=== PATIENT | female | born 1965 | race Caucasian/White ===

== ENCOUNTER → 2017-08-10 | Outpatient (CLI) | payer BC ==
--- NOTE | 2017-08-11 13:48 | MM ---
Reason for exam: screening (asymptomatic). Last mammogram was performed 1 year and 1 month ago. History: Patient had first child at age 32. Family history of premenopausal breast cancer in mother at age 40 and breast cancer in aunt at age 60. Benign right mammotome panel of the right breast, October 13, 2011. Cyst aspiration of the left breast, November 2006. Took hormonal contraceptives for 12 years beginning at age 19. Physical Findings: A clinical breast exam by your physician is recommended on an annual basis and results should be correlated with mammographic findings. MG 3D Screening Mammo W/Cad Bilateral CC and MLO view(s) were taken. Prior study comparison: July 20, 2016, bilateral MG 3d screening mammo w/cad. June 02, 2015, bilateral MG screening mammo w CAD. The breast tissue is extremely dense which could obscure a lesion on mammography. Previous mammotome biopsy in the right breast. There is chronic nodularity in the left breast. Stable distortion in the left breast. No significant changes when compared with prior studies. ASSESSMENT: Benign, BI-RAD 2 RECOMMENDATION: Routine screening mammogram of both breasts in 1 year.
== END ==
LOC: RADMAMWWP 12:39
PROVIDERS: ATTEND Surgery
DX: Z12.31 Encounter for screening mammogram for malignant neoplasm of breast (principal)
CPT/HCPCS: 77063; G0202

== ENCOUNTER → 2018-05-08 | Outpatient (CLI) | payer BC ==
--- NOTE | 2018-05-08 10:28 | ECHOF ---
Referral Reason:Z78.0 Postmenopausal, R06.09 Dyspnea on exertion MEASUREMENTS -------- HEIGHT: 157.5 cm WEIGHT: 73.5 kg BP: IVSd: 1.1 cm (0.6 - 1.1) LVIDd: 3.6 cm (3.9 - 5.3) LVPWd: 1.3 cm (0.6 - 1.1) IVSs: 1.4 cm LVIDs: 2.6 cm LVPWs: 1.3 cm LA Diam: 2.9 cm (2.7 - 3.8) Ao Diam: 2.4 cm (2.0 - 3.7) AV Cusp: 1.4 cm (1.5 - 2.6) LA Diam: 3.7 cm (2.7 - 3.8) MV EXCURSION: 7.289 mm (> 18.000) MV EF SLOPE: 62 mm/s (70 - 150) EPSS: 0.1 cm MV E Zachary: 0.73 m/s MV DecT: 206 ms MV A Zachary: 0.66 m/s MV E/A Ratio: 1.10 RAP: 5.00 mmHg RVSP: 19.39 mmHg FINDINGS -------- Sinus rhythm. This was a technically adequate study. LV size, wall thickness and systolic function are normal, with an EF greater than 55%. The left severo tricular size is normal. The right ventricle is normal in size. The left atrial size is normal. The right atrial size is normal. There is mild aortic valve sclerosis. There is no evidence of aortic regurgitation. Mild mitral annular calcification present. Mild mitral regurgitation is present. Mild tricuspid regurgitation present. There is no evidence of pulmonary hypertension. The right v entricular systolic pressure, as measured by Doppler, is 19.39mmHg. There is no pulmonic regurgitation present. The aortic root size is normal. There is no pericardial effusion. CONCLUSIONS -------- 1. LV size, wall thickness and systolic function are normal, with an EF greater than 55%. 2. The left ventricular size is normal. 3. The right ventricle is normal in size. 4. The left atrial size is normal. 5. The right atrial size is normal. 6. There is mild aortic valve sclerosis. 7. Mild mitral annular calcification present. 8. Mild mitral regurgitation is present. 9. Mild tricuspid regurgitation present. 10. There is no evidence of pulmonary hypertension. 11. The right ventricular systolic pressure, as measured by Doppler, is 19.39mmHg. 12. There is no pulmonic regurgitation present. 13. The aortic root size is normal. 14. There is no pericardial effusion. COMPOTYPE OPERATOR: Ciera Metz RDCS
--- NOTE | 2018-05-08 11:07 | ECHOS ---
STRESS ECHOCARDIOGRAM INDICATIONS: Shortness of breath, palpitations. MEDICATIONS: Cerdelga, HCTZ, Synthroid. BASELINE HEART RATE: 66 BASELINE BLOOD PRESSURE: 152/67 MAXIMUM HEART RATE: 167 MAXIMUM BLOOD PRESSURE: 207/95 85% MPHR: 143 100% MPHR: 168 METS: 12.1 MAXIMUM STAGE REACHED: 4 TOTAL EXERCISE TIME: 12:00 CLINICAL INFORMATION: History of shortness of breath and palpitations. Baseline heart rate 66 beats per minute. Baseline blood pressure 152/67 mmHg. Baseline 12-lead ECG shows normal sinus rhythm with normal cardiac intervals. Patient exercised on Rivera protocol for 12 minutes achieving a peak heart rate of 167 beats per minute. Mildly hypertensive response to exercise, 207/95 mmHg. There was no ECG evidence for ischemia. No arrhythmias were noted. Baseline 2D echo showed normal LV size and systolic function, but it was technically difficult study before echo contrast was used to delay the LV endocardial borders. There was excellent augmentation of overall LV contractility without developing any wall motion abnormalities at peak exercise. At recovery, regional global LV systolic function remained normal. IMPRESSION: 1. No ECG or echocardiographic evidence for ischemia. 2. Good exercise capacity. 3. Mildly hypertensive response to exercise. MMODL / IJN: [id number] /
--- NOTE | 2018-05-08 16:07 | BD ---
EXAMINATION TYPE: Axial Bone Density DATE OF EXAM: 05/08/2018 COMPARISON: 07/11/2008 CLINICAL HISTORY: 53-year-old female postmenopausal screening Height: 61.5 IN Weight: 165 LBS RISK FACTORS HISTORY OF: Surgery to Hip(left): YES When: 1998 AND 2015 Active: YES Diet low in dairy products/other sources of calcium: YES If Premenopausal, do you have irregular periods: SPOTTING 04/2018 MEDICATIONS: Thyroid Medications: YES Which medication: Levothyroxine How Lon YEARS Additional Medications: LEVOTHYROXINE, CERDELGA, HCTZ EXAM MEASUREMENTS: Bone mineral densitometry was performed using the Motorpaneer System. Bone mineral density as measured about the Lumbar spine is: ----- L1-L4(G/cm2): 1.099 T Score Values are as follows: ----- L2: -0.7 ----- L3: -0.4 ----- L4: -1.1 ----- L1-L4: -0.7 Bone mineral density has: Increased 0.9% since study of: 07/11/2008 PT HAD LT HIP REPLACEMENT 1998 AND 2015 Bone mineral density about the R hip (g/cm2): 0.777 T Score values are as follows: -----R Neck: -1.9 -----R Total: -1.1 Bone mineral density has: Decreased -1.7% since study of: 07/11/2008 IMPRESSION: Osteopenia (T Score between -2.5 and -1). There is slightly increased risk of fracture and the patient may be considered for treatment. Re-Screen 2-5 years. NOTE: T-SCORE=SD OF THE YOUNG ADULT MEAN.
== END | disposition home or self-care (01) ==
LOC: RADECHMAIN 08:21
PROVIDERS: ATTEND Family Medicine
DX: I08.1 Rheumatic disorders of both mitral and tricuspid valves (principal); M85.80 Other specified disorders of bone density and structure, unspecified site; I10 Essential (primary) hypertension; Z78.0 Asymptomatic menopausal state
CPT/HCPCS: 93306; 93351; 77080; Q9950

== ENCOUNTER → 2018-05-09 | Outpatient (CLI) | payer BC ==
--- NOTE | 2018-05-10 20:23 | MR ---
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 Limited movement of the right hip. History of osteomyeli tis left femur. TECHNIQUE: Multiplanar, multisequence images of the right femur were obtained without IV contrast. 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 There is an old aren't retracted within the left femoral shaft with associated cortical thickening along the mid shaft and prominent cortical irregularity especially at the level of the mid diaphyses. Chronic appearing cystic spaces are prese nt within the medullary space here and proximally, there is metal hardware artifact relating to left hip arthroplasty. On the right, there is diffuse heterogeneity of the marrow with curvilinear and punctate areas of int ermediate T1 signal and intermediate to bright fluid signal. T2-weighted sequence shows heterogeneous areas of low signal within the medullary space. There is a 1.7 x 1.0 x 1.0 cm round lesion within the intramedullary space of the distal third femora l shaft. This abuts the posterior cortex without any significant endosteal scalloping. There may be s ome subtle chemical shift artifact related to this lesion, for example, coronal T1 image 14. There is no raul bone marrow replacement or bone marrow edema identified. Small knee joint effusions, left greater than right. No significant soft tissue abnormality seen. IMPRESSION: 1. Erlenmeyer flask deformities of the distal femora in keeping with patient's history of Gaucher's d isease. 2. Heterogeneous marrow signal especially involving the femoral shaft. Findings suspected to represen t a combination of red marrow hyperplasia, bone infarcts, and Gaucher bodies relating to the patient' s storage disease. 3. On the right, no evidence for fracture, osteomyelitis, or any destructive lesion. 4. There is a 1.7 cm lesion in the distal third right femoral shaft located within the intramedullary space. Differential considerations include a nonspecific intraosseous cyst, fibro-osseous lesion, or chondroid lesion. No cortical erosions or aggressive features. There is no adjacent marrow edema to suggest intraosseous abscess. 5. Extensive chronic deformity to the left femoral shaft likely sequela of prior infection. There is an old pin tract in the mid shaft with extensive cystic change. Clinical correlation would be needed to exclude the presence of any indolent infection. Proximal artifact relating to left hip arthroplast y.
== END | disposition home or self-care (01) ==
LOC: RADMRIMAIN 11:24
PROVIDERS: ATTEND Family Medicine
DX: M21.951 Unspecified acquired deformity of right thigh (principal); M89.9 Disorder of bone, unspecified; Z96.642 Presence of left artificial hip joint

== ENCOUNTER → 2018-05-11 | Outpatient (CLI) | payer BC ==
--- NOTE | 2018-05-11 14:45 | MR ---
EXAMINATION TYPE: MR abdomen wo/w con DATE OF EXAM: 05/11/2018 COMPARISON: CT abdomen pelvis dated 05/13/2014 HISTORY: Gaucher's disease. History of nephrolithiasis, cholelithiasis and splenectomy. CONTRAST: Standard multiplanar, multisequence MRI departmental protocol of the abdomen was performed utilizing 7 mL intravenous Gadavist contrast. FINDINGS: Liver/gallbladder: There is no signal dropout within the hepatic parenchyma to suggest hepatic steato sis on out of phase imaging. No focal hepatic lesion is seen or evidence of intrahepatic biliary duct al dilatation. The liver is not enlarged. Multiple gallstones are seen within the gallbladder. No rig ht upper quadrant fat stranding is seen. No pericholecystic fluid is noted. No intrahepatic or extrah epatic biliary ductal dilatation is seen. The common hepatic duct measures 6 mm, within normal limits . There is a very subtle reticulation that is T1 hypointense, T2 hypointense, and demonstrates very sub tle delayed enhancement throughout the hepatic parenchyma. Spleen: Surgically absent. Pancreas: Pancreas enhances homogeneously without ductal dilatation. Adrenal glands: Adrenal glands are symmetric without nodularity or focal lesion. Kidneys: There is a too small to accurately characterize 5 mm nonenhancing right upper pole T1 hypoin tense lesion that is isointense on T2. No acute hemorrhage is seen on precontrast T1 images. Known re nal calculi are not demonstrated on MR. No hydronephrosis or focal renal lesion. Vasculature: Abdominal aorta and its visualized portions are of normal course and caliber. Bowel: Small posterior left lateral gastric diverticulum is seen from the fundus. No dilated large or small bowel is identified. No hiatal hernia. Osseous structures: No focal lesion is identified. Lymph nodes: No greater than 1 cm short axis lymph node within the abdomen. IMPRESSION: 1. Very mild reticular pattern throughout the hepatic parenchyma that could represent early fibrosis. If there is concern or abnormal serum laboratory values ranging liver biopsy could be performed. No focal liver lesion is identified. 2. Surgical absence of the spleen.
== END | disposition home or self-care (01) ==
LOC: RADMRIMAIN 11:17
PROVIDERS: ATTEND Family Medicine
DX: R93.2 Abnormal findings on diagnostic imaging of liver and biliary tract (principal); E75.22 Gaucher disease; Z90.81 Acquired absence of spleen
CPT/HCPCS: 74183; A9581

== ENCOUNTER → 2018-05-12 | Outpatient (CLI) | payer BC ==
--- NOTE | 2018-05-12 13:10 | MR ---
EXAMINATION TYPE: MR pelvis wo/w con DATE OF EXAM: 05/12/2018 COMPARISON: CT abdomen and pelvis May 13, 2014 HISTORY: Gaucher disease CONTRAST: Standard multiplanar, multisequence MRI departmental protocol utilizing 7 mL intravenous Gadavist amber olinium contrast. FINDINGS: Evaluation slightly suboptimal due to unusual artifact over the anterior right lower quadra nt. Artifact from left hip arthroplasty is redemonstrated. Bone marrow signal intensity in pelvis is overall grossly unremarkable. Right hip joint is maintained. Sacroiliac joints are felt within normal limits. Pubic symphysis is intact. Visualized portion of lumbar spine is unremarkable. There is 1.0 cm Tarlov cyst inferior S2 level sagittal image 26. There is no suspicious bowel dilatation. Urinary bladder is felt within normal limits. Uterus is slig htly retroverted in shape. No free fluid is seen in pelvic cul-de-sac. No concerning pelvic adenopath y is seen. IMPRESSION: As above, no suspicious findings identified.
== END | disposition home or self-care (01) ==
LOC: RADMRIMAIN 11:18
PROVIDERS: ATTEND Family Medicine
DX: E75.22 Gaucher disease (principal)
CPT/HCPCS: 72197; A9581

== ENCOUNTER → 2019-05-30 | Outpatient (CLI) | payer BC ==
--- NOTE | 2019-05-31 13:15 | MM ---
Reason for exam: screening (asymptomatic). Last mammogram was performed 1 year and 10 months ago. History: Patient had first child at age 32. Family history of premenopausal breast cancer in mother at age 40 and breast cancer in aunt at age 60. Benign right mammotome panel of the right breast, October 13, 2011. Cyst aspiration of the left breast, November 2006. Took hormonal contraceptives for 12 years beginning at age 19. Physical Findings: A clinical breast exam by your physician is recommended on an annual basis and results should be correlated with mammographic findings. MG 3D Screening Mammo W/Cad Bilateral CC and MLO view(s) were taken. Prior study comparison: August 10, 2017, bilateral MG 3d screening mammo w/cad. July 20, 2016, bilateral MG 3d screening mammo w/cad. The breast tissue is heterogeneously dense. This may lower the sensitivity of mammography. There are benign appearing round calcifications in the left breast. Previous mammotome biopsy in the right breast. There is chronic nodularity in the left breast. There is no discrete abnormality. ASSESSMENT: Benign, BI-RAD 2 RECOMMENDATION: Routine screening mammogram of both breasts in 1 year.
== END | disposition home or self-care (01) ==
LOC: RADMAMWWP 15:36
PROVIDERS: ATTEND Family Medicine
DX: Z12.31 Encounter for screening mammogram for malignant neoplasm of breast (principal)
CPT/HCPCS: 77063; 77067

== ENCOUNTER → 2020-07-17 | Outpatient (CLI) | payer BC ==
--- NOTE | 2020-07-18 10:41 | ECHOF ---
Referral Reason:R3.0 ELEVATED BP MEASUREMENTS -------- HEIGHT: 157.5 cm WEIGHT: 68.9 kg BP: RVIDd: 3.0 cm (< 3.3) IVSd: 0.8 cm (0.6 - 1.1) LVIDd: 4.2 cm (3.9 - 5.3) LVPWd: 1.0 cm (0.6 - 1.1) IVSs: 1.4 cm LVIDs: 2.7 cm LVPWs: 1.1 cm LA Diam: 3.0 cm (2.7 - 3.8) LAESV Index (A-L): 19.39 ml/m Ao Diam: 2.7 cm (2.0 - 3.7) AV Cusp: 1.5 cm (1.5 - 2.6) MV EXCURSION: 17.007 mm (> 18.000) MV EF SLOPE: 119 mm/s (70 - 150) MV E Zachary: 0.49 m/s MV DecT: 287 ms MV A Zachary: 0.61 m/s MV E/A Ratio: 0.81 RAP: 5.00 mmHg RVSP: 13.62 mmHg TAPSE: 19.44 mm FINDINGS -------- Sinus rhythm. This was a technically good study. LV size, wall thickness and systolic function are normal, with an EF greater than 55%. The left severo tricular size is normal. The right ventricle is normal in size. The left atrial size is normal. Normal LA size by volume 22+/-6 ml/m2. The right atrial size is normal. The aortic valve is trileaflet, and appears structurally normal. No aortic stenosis or regurgitation. Mild mitral regurgitation is present. Mild tricuspid regurgitation present. Right ventricular systolic pressure is normal at < 35 mmHg. There is no pulmonic regurgitation present. The aortic root size is normal. There is no pericardial effusion. CONCLUSIONS -------- 1. LV size, wall thickness and systolic function are normal, with an EF greater than 55%. 2. The left ventricular size is normal. 3. The right ventricle is normal in size. 4. The left atrial size is normal. 5. Normal LA size by volume 22+/-6 ml/m2. 6. The right atrial size is normal. 7. Mild mitral regurgitation is present. 8. Mild tricuspid regurgitation present. 9. There is no pulmonic regurgitation present. DESIGN DRAFTSMAN: Ciera Metz RDCS
--- NOTE | 2020-07-18 13:57 | MM ---
Reason for exam: screening (asymptomatic). Last mammogram was performed 1 year and 2 months ago. History: Patient had first child at age 32. Family history of premenopausal breast cancer in mother at age 40 and breast cancer in aunt at age 60. Benign right mammotome panel of the right breast, October 13, 2011. Cyst aspiration of the left breast, November 2006. Took hormonal contraceptives for 12 years beginning at age 19. Physical Findings: A clinical breast exam by your physician is recommended on an annual basis and results should be correlated with mammographic findings. MG 3D Screening Mammo W/Cad Bilateral CC and MLO view(s) were taken. Prior study comparison: May 30, 2019, bilateral MG 3d screening mammo w/cad. August 10, 2017, bilateral MG 3d screening mammo w/cad. The breast tissue is heterogeneously dense. This may lower the sensitivity of mammography. Previous mammotome biopsy in the right breast. There is chronic nodularity in the left breast. No significant changes when compared with prior studies. ASSESSMENT: Benign, BI-RAD 2 RECOMMENDATION: Routine screening mammogram of both breasts in 1 year.
== END | disposition home or self-care (01) ==
LOC: RADMAMWWP 15:21
PROVIDERS: ATTEND Obstetrics & Gynecology
DX: Z12.31 Encounter for screening mammogram for malignant neoplasm of breast (principal); I08.1 Rheumatic disorders of both mitral and tricuspid valves
CPT/HCPCS: 77063; 77067; 93306

== ENCOUNTER → 2020-10-01 | Outpatient (CLI) | payer BC ==
--- NOTE | 2020-10-01 13:52 | CT ---
EXAMINATION TYPE: CT abdomen pelvis wo/w con DATE OF EXAM: 10/01/2020 COMPARISON: 05/13/2014 INDICATION: Left lower quadrant pain and hematuria. DLP: 1724.6 mGycm, Automated exposure control for dose reduction was used. CONTRAST: 100 mL of Isovue M300. Study performed with Oral Contrast TECHNIQUE: Axial images were obtained from above the diaphragm to the pubic rami in the axial plane a t 5 mm thick sections. Reconstructed images are reviewed on the computer in the coronal plane. FINDINGS: Limited CT sections are obtained the lung bases. The lung bases are clear. CT ABDOMEN: Liver: Normal Spleen: Normal Pancreas: Normal Adrenal glands: The adrenal glands are normal. Gallbladder: Gallstones are present Kidneys: No masses are evident. There is moderate left hydronephrosis. There is an obstructing left u reteral pelvic junction stone measuring 0.7 x 1.1 cm. Series 3 image 28. Distal ureteral stones are n ot identified. No right hydronephrosis is evident No cysts are present. Aorta: Normal Inferior vena cava: Normal. CT PELVIS: Loops of bowel within the abdomen and pelvis are normal. There are loops of bowel which are incom pletely distended or lack oral contrast limiting their evaluation. Appendix: Not identified. No suspicious dilated tubular structures or inflammatory changes are eviden t Urinary bladder: Normal Genitourinary structures: Uterus is normal. Adnexal regions are clear Osseous structures: No suspicious lytic or sclerotic lesions. IMPRESSIONS: 1. Obstructing 0.7 x 1.1 cm left ureteral pelvic junction stone with moderate left hydronephrosis.
== END | disposition home or self-care (01) ==
LOC: RADCTMAIN 11:39
PROVIDERS: ATTEND Nurse Practitioner Family
DX: N13.2 Hydronephrosis with renal and ureteral calculous obstruction (principal)
CPT/HCPCS: 74178; Q9967 ×2

== ENCOUNTER 2020-10-13 06:02 | Day surgery (SDC) | payer BC ==
[2020-10-09 14:26] VITALS: BMI 28.9
--- NOTE | 2020-10-10 08:51 | P.GSHP ---
History of Present Illness H&P Date: 10/10/20 58 yo female with a painful 11x7 left upj stone who comes for eswl The risks complications and alternatives have been discussed - Constitutional Constitutional: Denies chills, Denies fever - EENT Eyes: denies blurred vision, denies pain Ears, nose, mouth and throat: Denies headache, Denies sore throat - Cardiovascular Cardiovascular: Denies chest pain, Denies shortness of breath - Respiratory Respiratory: Denies cough, Denies 7 - Gastrointestinal Gastrointestinal: Denies abdominal pain, Denies diarrhea, Denies nausea, Denies vomiting - Genitourinary (Female) Genitourinary: Denies dysuria, Denies hematuria - Genitourinary (Male) Genitourinary: Denies dysuria, Denies hematuria - Musculoskeletal Musculoskeletal: Denies myalgias - Integumentary Integumentary: Denies pruritus, Denies rash - Neurological Neurological: Denies numbness, Denies weakness - Psychiatric Psychiatric: Denies anxiety, Denies depression - Endocrine Endocrine: Denies fatigue, Denies weight change Past Medical History Past Medical History: Blood Disorder, Thyroid Disorder Additional Past Medical History / Comment(s): Gaucher's disease, hx osteomyelitis, hypoglycemia. History of Any Multi-Drug Resistant Organisms: None Reported Past Surgical History: Joint Replacement, Orthopedic Surgery Additional Past Surgical History / Comment(s): Spleenectomy, multiple orthopedic surgeries, left hip replacement, THYROIDECTOMY/PARATHYROIDECTOMY, left hip revision. Past Anesthesia/Blood Transfusion Reactions: Motion Sickness Past Psychological History: No Psychological Hx Reported Smoking Status: Never smoker Past Alcohol Use History: Rare Past Drug Use History: None Reported - Past Family History Mother Family Medical History: Cancer Medications and Allergies Home Medications Medication Instructions Recorded Confirmed Type hydroCHLOROthiazide [Hydrodiuril] 25 mg PO QAM 03/31/17 10/09/20 History Cerezyeme 1 dose IV Q14D 10/09/20 10/09/20 History Cholecalciferol [Vitamin D3 (25 1,000 unit PO DAILY 10/09/20 10/09/20 History Mcg = 1000 Iu)] Levothyroxine Sodium [Synthroid] 75 mcg PO QAM 10/09/20 10/09/20 History Allergies Allergy/AdvReac Type Severity Reaction Status Date / Time amoxicillin [Amoxicillin] AdvReac Diarrhea Verified 10/09/20 14:14 Penicillins AdvReac Diarrhea Verified 10/09/20 14:14 Surgical - Exam - General well developed, well nourished - Eyes PERRL - ENT no hearing loss - Neck trachea midline - Respiratory normal expansion, normal respiratory effort - Cardiovascular Rhythm: regular - Abdomen Abdomen: soft, non tender - Integumentary no rash, no growths - Musculoskeletal normal gait, normal posture - Psychiatric oriented to time, oriented to person, oriented to place, speech is normal, memory intact Assessment and Plan Assessment: Impression: Left upj stone Plan: eswl left
[~2020-10-13 06:02] MED LIST: DEXAMETHASONE SOD PHOSPHATE 4 MG/ML 1 ML VIAL IV ONE; HYDROmorphone 0.5 MG/0.5 ML SYRINGE IVP PRN; LACTATED RINGERS 1,000 ML IV SCH; ONDANSETRON 4 MG/2 ML VIAL IVP ONE
[2020-10-13 06:59] LABS: Glucose,Whole Blood 94 mg/dL (75-99)
[2020-10-13 07:01] VITALS: RESP 16; TEMP 97.1
[2020-10-13] MEDS ORDERED: MIDAZOLAM 2 MG/2 ML VIAL ONE (07:38)
[2020-10-13] MEDS ORDERED: PROPOFOL 10 MG/ML 20 ML VIAL IV ONE (07:38)
[2020-10-13] MEDS ORDERED: LIDOCAINE 1% INJ 10MG/ML (20 ML MDV) ONE (07:38)
[2020-10-13] MEDS ORDERED: fentaNYL (PF) 50 MCG/ML 2 ML AMP ONE (07:38)
--- NOTE | 2020-10-13 08:14 | XR ---
EXAMINATION TYPE: XR KUB portable DATE OF EXAM: 10/13/2020 COMPARISON: Correlation CT 10/01/2020 HISTORY: 55 year-old female left renal calculi FINDINGS: 11 x 6 mm calcification in the left mid abdomen. Mild to moderate overall spinal burden. Nonobstructi ve bowel gas pattern. Partly visualized left hip arthroplasty. Mild degenerative change of the right hip. IMPRESSION: 11 x 6 mm left mid abdominal renal calculus. CT abdomen at the level of the UPJ on 10/01/2020.
--- NOTE | 2020-10-13 08:17 | P.OP ---
Date of Procedure: 10/13/20 Preoperative Diagnosis: Left renal calculus Postoperative Diagnosis: Same Procedure(s) Performed: Left extracorporal shockwave lithotripsy (ESWL) Anesthesia: MAC Surgeon: Gerard Olivia Estimated Blood Loss (ml): 0 IV fluids (ml): 700 Pathology: none sent Condition: stable Disposition: PACU Indications for Procedure: The patient is a 55-year-old white female who recently presented with left flank pain due to a 7 x 11 mm left UPJ calculus. She elected to undergo ESWL. Preoperative KUB x-ray reveals that the calculus now resides within a lower pole calyx. Operative Findings: Excellent fragmentation. Description of Procedure: The patient was taken to the operating room and placed on the Dornier Profex Delta II lithotripter in the supine position. The calculus was seen on biplanar fluoroscopy. Once the patient was properly positioned and sedated, lithotripsy was performed. The energy level was gradually increased per protocol, to an energy level of 5. A total of 2000 shocks were given at a rate of 80 shocks per minute. Fluoroscopy was utilized at a minimum to ensure proper positioning and determine the treatment status. The calculus changed in appearance, consistent with fragmentation. The patient tolerated the procedure well was taken to the recovery room in stable condition. Instructions were given to strain the urine, and the patient will follow-up within one week.
[2020-10-13 08:48] VITALS: BP 114/75; PULSE 62
== END 2020-10-13 09:07 | disposition home or self-care (01) ==
LOC: ORWHC2ENDO 06:02
PROVIDERS: ATTEND Urology
DX: N20.0 Calculus of kidney (principal); E75.22 Gaucher disease; E89.0 Postprocedural hypothyroidism; E89.2 Postprocedural hypoparathyroidism; Z96.642 Presence of left artificial hip joint; Z79.890 Hormone replacement therapy; Z79.899 Other long term (current) drug therapy; Z88.0 Allergy status to penicillin; Z87.39 Personal history of other diseases of the musculoskeletal system and connective tissue; Z86.2 Personal history of diseases of the blood and blood-forming organs and certain disorders involving the immune mechanism; Z90.81 Acquired absence of spleen; Z98.890 Other specified postprocedural states
CPT/HCPCS: 74018; 50590; J2250; J1100; J2405; J2001; J3010; J2704

== ENCOUNTER → 2020-10-23 | Outpatient (CLI) | payer BC ==
--- NOTE | 2020-10-23 10:33 | XR ---
EXAMINATION TYPE: XR KUB DATE OF EXAM: 10/23/2020 Comparison: 10/23/2020 Clinical History: 55-year-old female N20.1 Ureteral Calculus Findings: A 5 mm calcification may remain in the left mid abdomen, smaller as compared to 1.1 cm, previously. M oderate stool burden. Nonobstructive bowel gas pattern. Left hip total arthroplasty partially visuali zed. Impression: A 5 mm left mid abdominal calcification remains compared to 1.1 cm, previously.
== END | disposition home or self-care (01) ==
LOC: RADXRMAIN 09:15
PROVIDERS: ATTEND Urology
DX: N20.1 Calculus of ureter (principal)
CPT/HCPCS: 74018

== ENCOUNTER → 2021-08-06 | Outpatient (CLI) | payer BC ==
--- NOTE | 2021-08-06 07:54 | BD ---
EXAMINATION TYPE: Axial Bone Density DATE OF EXAM: 08/06/2021 COMPARISON: Prior DEXA bone scan 2018 CLINICAL HISTORY: Postmenopausal female. Disorder of bone. Height: 61.5 Weight: 161.5 FRAX RISK QUESTIONS: Alcohol (3 or more units per day): no Family History (Parent hip fracture): no Glucocorticoids (More than 3mos): no (Ex: prednisone, prednisolone, methylprednisolone, dexamethasone, and hydrocortisone). History of Fracture in Adulthood: no Secondary Osteoporosis: 1. Type 1 Diabetes: no 2. Hyperthyroidism: no 3. Menopause before 45: no 4. Malnutrition: no 5. Chronic liver disease: no Rheumatoid Arthritis: no Current Tobacco Use: no RISK FACTORS HISTORY OF: Surgery to Spine/Hip(right/left)/Wrist (right/left): left hip When: 4 years ago Family History of Osteoporosis: no Active: yes Diet low in dairy products/other sources of calcium: yes Postmenopausal woman: yes Lost more than 2 inches in height since high school: no MEDICATIONS: hydrochlorothiazide Thyroid Medications: levothyroxine How Lon years Additional History: EXAM MEASUREMENTS: Bone mineral densitometry was performed using the [employer] System. Bone mineral density as measured about the Lumbar spine is: ----- L1-L4(G/cm2): 0.997 T Score Values are as follows: ----- L2: -1.5 ----- L3: -1.7 ----- L4: -1.7 ----- L1-L4: -1.5 Bone mineral density has: decreased -9.6 % since study of: 2017 Bone mineral density about the R hip (g/cm2): 0.743 T Score values are as follows: -----R Neck: -2.1 -----R Total: -1.6 Bone mineral density has: decreased -4.9 % since study of: 2018 IMPRESSION: Osteopenia (T Score between -2.5 and -1) remains present. Bone density decreased from prior. There remains slightly increased risk of fracture and the patient may be considered for treatment. Re-Screen 2-5 years. NOTE: T-SCORE=SD OF THE YOUNG ADULT MEAN.
== END | disposition home or self-care (01) ==
LOC: RADBDWWP 07:21
PROVIDERS: ATTEND Obstetrics & Gynecology
DX: M85.89 Other specified disorders of bone density and structure, multiple sites (principal); Z78.0 Asymptomatic menopausal state; Z79.899 Other long term (current) drug therapy
CPT/HCPCS: 77080

== ENCOUNTER → 2021-09-16 | Outpatient (CLI) | payer BC ==
--- NOTE | 2021-09-21 11:40 | MM ---
Reason for exam: screening (asymptomatic). Last mammogram was performed 1 year and 2 months ago. History: Patient is postmenopausal and had first child at age 32. Family history of premenopausal breast cancer in mother at age 40 and breast cancer in aunt at age 60. Benign right mammotome panel of the right breast, October 13, 2011. Cyst aspiration of the left breast, November 2006. Took hormonal contraceptives for 12 years beginning at age 19. Physical Findings: A clinical breast exam by your physician is recommended on an annual basis and results should be correlated with mammographic findings. MG 3D Screening Mammo W/Cad Bilateral CC and MLO view(s) were taken. Prior study comparison: July 17, 2020, bilateral MG 3d screening mammo w/cad. May 30, 2019, bilateral MG 3d screening mammo w/cad. The breast tissue is heterogeneously dense. This may lower the sensitivity of mammography. Previous mammotome biopsy in the right breast. There is chronic nodularity in the left breast. There is no discrete abnormality. ASSESSMENT: Benign, BI-RAD 2 RECOMMENDATION: Routine screening mammogram of both breasts in 1 year.
== END | disposition home or self-care (01) ==
LOC: RADMAMWWP 13:52
PROVIDERS: ATTEND Obstetrics & Gynecology
DX: Z12.31 Encounter for screening mammogram for malignant neoplasm of breast (principal); Z78.0 Asymptomatic menopausal state; Z80.3 Family history of malignant neoplasm of breast
CPT/HCPCS: 77063; 77067

== ENCOUNTER → 2021-09-16 | Outpatient (CLI) | payer BC ==
--- NOTE | 2021-09-16 14:42 | XR ---
EXAMINATION TYPE: XR Femur LT 1 View, XR Femur RT 1 View DATE OF EXAM: 09/16/2021 COMPARISON: NONE HISTORY: GAUCHER DISEASE TECHNIQUE: AP views of the bilateral femora are submitted. FINDINGS: Right femur: No evidence for fracture or dislocation. Lucent lesion in the distal left femoral diaphy sis with limited characterization given only a single view obtained. Consider MRI correlation. Left femur: Changes of total hip arthroplasty with femoral and acetabular components appearing well s eated. There is sclerosis of the left femur up to its distal diaphysis. No evidence for displaced fra cture at this time. IMPRESSION: As above
== END | disposition home or self-care (01) ==
LOC: RADXRMAIN 14:15
PROVIDERS: ATTEND Internal Medicine
DX: E75.22 Gaucher disease (principal)

== ENCOUNTER → 2021-09-25 | Outpatient (CLI) | payer BC ==
--- NOTE | 2021-09-27 06:10 | MR ---
EXAMINATION TYPE: MR abdomen wo con DATE OF EXAM: 09/25/2021 COMPARISON: 05/11/2018 HISTORY: Gaucher disease, hx of splenectomy. Multiplanar multiecho imaging of the abdomen without contrast. Liver has normal size and contour. Liver measures 16.5 cm in length. Spleen is absent. Stomach is int act. The bile ducts are not dilated. There is no evidence of pancreatic mass. The bile ducts are nond ilated. There are large gallstones. Common bile duct appears normal. Pancreas appears normal. The quinn creatic duct appears normal. There is no adrenal mass. Kidneys have normal size. There is no hydronephrosis. There is no retroperi toneal adenopathy. There is no ascites. Lung bases are clear. IMPRESSION: Multiple large gallstones without change. No focal liver defect. No acute abnormality in the abdomen pelvis.
== END | disposition home or self-care (01) ==
LOC: RADMRIMAIN 20:50
PROVIDERS: ATTEND Internal Medicine
DX: E75.22 Gaucher disease (principal); K80.20 Calculus of gallbladder without cholecystitis without obstruction
CPT/HCPCS: 74181

== ENCOUNTER → 2021-09-26 | Outpatient (CLI) | payer BC ==
--- NOTE | 2021-09-27 01:49 | MR ---
EXAMINATION TYPE: MR femur/thigh LT wo con DATE OF EXAM: 09/26/2021 COMPARISON: HISTORY: Gaucher Disease f/u done every 2 years Multiplanar multiecho imaging of the left femur without contrast. There is left hip prosthesis. Components appear in good position. There is decreased signal throughou t most of the shaft of the left femur consistent with osteosclerosis and calcification. The distal fe moral metaphysis shows normal fatty marrow signal pattern. There is no evidence of a fracture. There is no evidence of soft tissue mass. Muscle bundles of the left thigh show no discrete mass. There is no pathologic fluid collection. IMPRESSION: Left hip surgery. Sclerotic changes in the shaft of the femur. No fracture seen. No evidence of a sof t tissue mass.
--- NOTE | 2021-09-27 02:13 | MR ---
EXAMINATION TYPE: MR femur/thigh RT wo con DATE OF EXAM: 09/26/2021 COMPARISON: 05/09/2018 HISTORY: Gaucher Disease f/u done every 2 years Multiplanar multiecho imaging of the right femur without contrast. There is 1.7 cm rounded focus of decreased signal on the T1 images and increased signal on the T2 ha ges in the mid shaft of the right femur in the cancellous bone. There is no evidence of cortical dest ruction. There is no evidence of femoral fracture. Bone marrow otherwise shows fairly normal signal p attern. There is no evidence of a soft tissue mass. IMPRESSION: Rounded lesion in the femur not changed in size compared to old exam and suggestive of benign disease . This could be a cyst. No fracture seen. Sclerotic changes in the mid and distal shaft of the left f emur not changed compared to old exam.
== END | disposition home or self-care (01) ==
LOC: RADMRIMAIN 14:29
PROVIDERS: ATTEND Internal Medicine
DX: M89.8X0 Other specified disorders of bone, multiple sites (principal); E75.22 Gaucher disease

== ENCOUNTER → 2021-12-23 | Outpatient (CLI) | payer BC ==
[2021-12-24 14:14] LABS: Coronavirus SARS CoV-2 Not Detected (Not Detected)
== END | disposition home or self-care (01) ==
LOC: LABWHC1 09:23
PROVIDERS: ATTEND Family Medicine
DX: Z20.822 Contact with and (suspected) exposure to COVID-19 (principal); J06.9 Acute upper respiratory infection, unspecified
CPT/HCPCS: 87502; U0003; C9803

== ENCOUNTER → 2022-09-20 | Outpatient (CLI) | payer BC ==
--- NOTE | 2022-09-21 19:11 | MM ---
Reason for Exam: Screening (asymptomatic). Last screening mammogram was performed 12 month(s) ago. Patient History: Menarche at age 13. First Full-Term at age 32. Late child-bearing (after 30). Postmenopausal. Hormonal Contraceptives for 12 years from age 19 until age 31. 11/2006, Cyst Aspiration on the Left side. 10/13/2011, Benign Core Biopsy on the right side. Maternal aunt had breast cancer, age 60. Mother had breast cancer, age 40. Risk Values: Mendy 5 year model risk: 2.9%. NCI Lifetime model risk: 18.1%. Prior Study Comparison: 05/30/2019 Bilateral Screening Mammogram, [facility]. 07/17/2020 Bilateral Screening Mammogram, [facility]. 09/16/2021 Bilateral Screening Mammogram, [facility]. Tissue Density: The breast tissue is heterogeneously dense. This may lower the sensitivity of mammography. Findings: Analyzed By CAD. Scattered benign calcifications are present. There is some stable nodularity within the left breast. Metallic markers in the right breast. No significant interval changes are evident. No suspicious groups of microcalcifications, spiculated or lobular masses, architectural distortion or other secondary signs of malignancy are mammographically apparent. Overall Assessment: Benign, BI-RAD 2 Management: Screening Mammogram of both breasts in 1 year. A negative mammogram report should not preclude additional follow up of suspicious palpable abnormalities. Patient should continue monthly self breast exam. A clinical breast exam by your physician is recommended on an annual basis and results should be correlated with mammographic findings. Electronically signed and approved by: Kurtis Ellis D.O. Radiologis
== END | disposition home or self-care (01) ==
LOC: RADMAMWWP 16:10
PROVIDERS: ATTEND Obstetrics & Gynecology
DX: Z12.31 Encounter for screening mammogram for malignant neoplasm of breast (principal); Z80.3 Family history of malignant neoplasm of breast; Z78.0 Asymptomatic menopausal state; Z98.890 Other specified postprocedural states
CPT/HCPCS: 77063; 77067

== ENCOUNTER → 2023-09-22 | Outpatient (CLI) | payer BC ==
--- NOTE | 2023-09-22 13:17 | BD ---
EXAMINATION TYPE: Axial Bone Density DATE OF EXAM: 09/22/2023 CLINICAL HISTORY: 58 years old Female. ICD-10 CODE: M85.88 disorder of bone Height: 61 in Weight: 172 lbs FRAX RISK QUESTIONS: Secondary Osteoporosis: 2. Hyperthyroidism: yes 5. Chronic liver disease: pt has Gaucher disease and does iv therapy to manage RISK FACTORS HISTORY OF: Surgery to Hip(left): hip replacement 1999 and revision 2018 Active: yes Diet low in dairy products/other sources of calcium: yes Postmenopausal woman: age 53 Hyperparathyroidism: yes MEDICATIONS: Thyroid Medications: yes Which medication: Levothyroxine How Lon+ years Osteoporosis Medications: yes Which medication: Fosamax How Lon years Additional Medications: vit d, blood pressure meds, iv therapy EXAM MEASUREMENTS: Bone mineral densitometry was performed using the [employer] System. Bone mineral density as measured about the Lumbar spine is: ----- L1-L4(G/cm2): 1.048 T Score Values are as follows: ----- L1: -0.8 ----- L2: -1.1 ----- L3: -1.1 ----- L4: -1.5 ----- L1-L4: -1.1 Z Score Values are as follows: ----- L1: -0.2 ----- L2: -0.6 ----- L3: -0.5 ----- L4: -1.0 ----- L1-L4: -0.5 Bone mineral density has: Increased 5.1% since study of: 08/06/2021 Bone mineral density about the R hip (g/cm2): 0.820 T Score values are as follows: -----R Neck: -2.5 -----R Total: -1.5 Z Score values are as follows: -----R Neck: -1.6 -----R Total: -1.0 Bone mineral density has: Decreased -0.4% since study of: 08/06/2021 FRAX%s: The graph provided illustrates a 9.9% chance for a major osteoporotic fx and a 1.8% chance fo r the hips probability for fx in 10 years time. IMPRESSION: Osteopenia (T Score between -2.5 and -1). There is slightly increased risk of fracture and the patient may be considered for treatment. Re-Screen 2-5 years. NOTE: T-SCORE=SD OF THE YOUNG ADULT MEAN.
--- NOTE | 2023-09-23 13:02 | MM ---
Reason for Exam: Screening (asymptomatic). Last screening mammogram was performed 12 month(s) ago. Patient History: Menarche at age 13. First Full-Term at age 32. Late child-bearing (after 30). Postmenopausal. Hormonal Contraceptives for 12 years from age 19 until age 31. 11/2006, Cyst Aspiration on the Left side. 10/13/2011, Benign Core Biopsy on the right side. Maternal aunt had breast cancer, age 60. Mother had breast cancer, age 40. Risk Values: Mendy 5 year model risk: 3.1%. NCI Lifetime model risk: 17.8%. Prior Study Comparison: 07/17/2020 Bilateral Screening Mammogram, [facility]. 09/16/2021 Bilateral Screening Mammogram, [facility]. 09/20/2022 Bilateral MG 3D screening mammo w/cad, [facility]. Tissue Density: The breast tissue is heterogeneously dense. This may lower the sensitivity of mammography. Findings: Analyzed By CAD. There is no suspicious group of microcalcifications or new suspicious mass. Overall Assessment: Negative, BI-RAD 1 Management: Screening Mammogram of both breasts in [address] [facility] will attempt to contact patient to return for supplemental views and ultrasound if indicated. Patient should continue monthly self-breast exams. A clinical breast exam by your physician is recommended on an annual basis. This exam should not preclude additional follow-up of suspicious palpable abnormalities. Note on Mendy scores and lifetime risk: 1. A Mendy score greater than 3% is considered moderate risk. If this is the case, consider specialist referral to assess eligibility for a risk reducing agent. 2. If overall lifetime risk for the development of breast cancer is 20% or higher, the patient may qualify for future screening with alternating mammogram and breast MRI. Electronically signed and approved by: Vladimir Estrada DO
== END | disposition home or self-care (01) ==
LOC: RADMAMWWP 11:02
PROVIDERS: ATTEND Obstetrics & Gynecology
DX: Z12.31 Encounter for screening mammogram for malignant neoplasm of breast (principal); M85.89 Other specified disorders of bone density and structure, multiple sites; Z78.0 Asymptomatic menopausal state; Z80.3 Family history of malignant neoplasm of breast
CPT/HCPCS: 77063; 77067; 77080

== ENCOUNTER → 2023-09-22 | Outpatient (CLI) | payer BC ==
--- NOTE | 2023-09-23 07:26 | XR ---
EXAMINATION TYPE: XR femur bilateral DATE OF EXAM: 09/22/2023 1:04 PM CLINICAL INDICATION:Female, 58 years old with history of E75.22; [facility] COMPARISON: 09/16/2021 TECHNIQUE: Bilateral femurs were examined in Frontal and lateral projections. FINDINGS: Left hip arthroplasty with hardware intact. No evidence of fracture. Remote appearing frac ture of the distal left femur. The right hip infiltrates mild acetabular osteophyte formation. No amaury dence of acute osseous pathology, joint dislocation, or soft tissue swelling IMPRESSION: 1. No acute osseous pathology. 2. Left hip arthroplasty with hardware intact. 3. Remote left femur fracture. 4. Mild right hip osteoarthrosis.
== END | disposition home or self-care (01) ==
LOC: RADXRMAIN 11:56
PROVIDERS: ATTEND Internal Medicine
DX: E75.22 Gaucher disease (principal); M16.11 Unilateral primary osteoarthritis, right hip; Z96.642 Presence of left artificial hip joint

== ENCOUNTER → 2024-01-13 | Outpatient (CLI) | payer BC ==
--- NOTE | 2024-01-18 14:42 | MR ---
EXAMINATION TYPE: MR abdomen wo con DATE OF EXAM: 01/13/2024 10:34 PM CLINICAL INDICATION:Female, 58 years old with history of E75.22 GAUCHER DISEASE; [facility], Annual check-up every 2 yrs for Gaucher Disease, Hx splenectomy COMPARISON: MRI 09/25/2021 TECHNIQUE: Multiplanar multi-sequence imaging was performed without contrast. Post contrast imaging was performed. Post IV contrast subtraction images were also submitted for review. IV Contrast: cc None FINDINGS: LOWER CHEST: No gross irregularity. ABDOMEN Liver: No evidence for cirrhosis. Signal dropout on chemical shift out of phase imaging. No suspiciou s calcifications. Gallbladder and Bile ducts: No evidence for ductal dilation, or biliary stricture or evidence of chol edocholithiasis. The gallbladder is decompressed. Multiple gallstones are seen in the gallbladder fun dus. Pancreas: No ductal dilation. No evidence for solid mass. Spleen: Spleen is surgically absent. Adrenal glands: Unremarkable. Kidneys: No evidence for obstructive uropathy. No suspicious renal masses. Stomach and Bowel: No evidence for bowel wall thickening or evidence for obstruction. Retroperitoneum/Peritoneum: No evidence of pneumoperitoneum or free fluid. Vasculature: No aortic aneurysm. Musculoskeletal: The osseous structures appear intact. Lymph Nodes: No gross evidence for lymphadenopathy. Abdominal wall: Unremarkable. IMPRESSION: 1. No evidence for acute process. The liver is without suspicious observation. There is mild hepatic steatosis. 2. Cholelithiasis. 3. Splenectomy.
== END | disposition home or self-care (01) ==
LOC: RADMRIMAIN 10:52
PROVIDERS: ATTEND Internal Medicine
DX: K76.0 Fatty (change of) liver, not elsewhere classified (principal); E75.22 Gaucher disease; K80.20 Calculus of gallbladder without cholecystitis without obstruction; Z90.81 Acquired absence of spleen
CPT/HCPCS: 74181

== ENCOUNTER → 2024-02-11 | Outpatient (CLI) | payer BC ==
--- NOTE | 2024-02-15 22:28 | MR ---
EXAMINATION: MR femur/thigh LT wo con DATE OF EXAM: 02/11/2024 COMPARISON: Bilateral femur radiographs 09/22/2023. MRI left and right thigh 09/26/2021. HISTORY: Gauchers disease, f/u up yearly TECHNIQUE: Multiplanar, multisequence images of the bilateral thighs were acquired without contrast. FINDINGS: RIGHT: BONES/MARROW: Unchanged circumscribed low T1/high T2 signal structure in the distal femoral intramedu llary canal measuring 1.6 cm. Mildly heterogenous bone marrow signal throughout the right femur. Thes e findings have not significantly changed compared to the prior exam.. SOFT TISSUES: Myotendinous structures are normal. No anatomic variant. No bursal distention. No fluid collection. NEUROVASCULAR: Visualized neurovascular structures are normal. OTHER: Normal. No mass. No lymphadenopathy. LEFT: BONES/MARROW: Left total hip arthroplasty without gross evidence of complication. Unchanged low T1 si gnal abnormality throughout the mid/distal femoral diaphysis. Distal femoral diaphysis demonstrates n ormal marrow signal.. SOFT TISSUES: Myotendinous structures are normal. No anatomic variant. No bursal distention. No fluid collection. NEUROVASCULAR: Visualized neurovascular structures are normal. OTHER: Normal. No mass. No lymphadenopathy. IMPRESSION: RIGHT: 1. Unchanged circumscribed intramedullary benign lesion in the distal femur. 2. Unchanged mildly heterogenous bone marrow signal throughout the right femur, may represent sequela of Gaucher's disease. LEFT: 1. Unchanged bone marrow signal abnormality in the mid/distal left femur, may represent sequela of Ga ucher's disease. 2. Left total hip arthroplasty without gross evidence of complication.
== END | disposition home or self-care (01) ==
LOC: RADMRIMAIN 13:35
PROVIDERS: ATTEND Internal Medicine
DX: M89.8X5 Other specified disorders of bone, thigh (principal); E75.22 Gaucher disease; Z96.642 Presence of left artificial hip joint